=== PATIENT | female | born 1990 | race Caucasian/White ===

== ENCOUNTER 2024-06-19 01:45 | Emergency (ER) | payer MEDICAID ==
[~2024-06-19] VITALS: Ht 160 cm; Wt 93.0 kg
[2024-06-19 01:53] VITALS: O2SAT 98
[2024-06-19 02:22] VITALS: TEMP 36.55848
[2024-06-19] MEDS: METOCLOPRAMIDE HCL 10MG/2ML VIAL IV STA (02:28)
[2024-06-19] MEDS: MAGNESIUM/ALUMINUM HYDROXIDE/SIMETHICONE 30ML UDC PO STA (02:28)
[2024-06-19 02:41] LABS: BASOPHILS % 0.4 % (0.0-2.0); EOSINOPHILS % 1.3 % (0.0-5.0); HEMATOCRIT. 32.8 % (36.0-48.0); HEMOGLOBIN. 10.8 g/dL (12.0-16.0); MEAN CORPUSCULAR HEMOGLOBIN 31.1 pg (28.0-32.0); MEAN CORPUSCULAR HGB CONC 32.9 g/dL (31.0-37.0); MEAN CORPUSCULAR VOLUME 94.7 fL (81.0-99.0); MEAN PLATELET VOLUME 8.7 fl (7.4-10.4); MONOCYTES % 5.5 % (2.0-8.0); NEUTROPHILS % 59.8 % (40.0-76.0); PLATELET 288 x1000/uL (130-400); RED BLOOD CELL COUNT 3.46 mill/uL (4.2-5.4); RED CELL DISTRIBUTION WIDTH 13.6 % (11.6-14.6); WHITE BLOOD COUNT 11.8 x1000/uL (4.5-11.0)
[2024-06-19 02:47] LABS: CHLORIDE 109 mEq/L (98-107)
[2024-06-19 02:48] LABS: CARBON DIOXIDE 26 mEq/L (21-32); SODIUM 140 mEq/L (136-145)
[2024-06-19 02:49] LABS: CALCIUM 8.9 mg/dL (8.7-10.4)
[2024-06-19 02:53] LABS: CREATININE 0.7 mg/dL (0.6-1.0); GLUCOSE 94 mg/dL (70-105)
[2024-06-19 02:54] LABS: UREA NITROGEN BLOOD 16 mg/dL (9-23)
[2024-06-19 02:55] LABS: ALANINE AMINOTRANSFERASE 42 IU/L (10-49); ALBUMIN 3.6 g/dL (3.2-4.8); ASPARTATE AMINOTRANSFERASE 100 IU/L (<34)
[2024-06-19 02:56] LABS: BILIRUBIN DIRECT 0.2 mg/dL (<=3.0); BILIRUBIN TOTAL 0.6 mg/dL (0.1-1.0); PROTEIN TOTAL 6.2 g/dL (6.0-8.3)
[2024-06-19 03:07] LABS: INR 0.9; PROTHROMBIN TIME 10.4 sec (9.6-11.0)
[2024-06-19] MEDS: ACETAMINOPHEN 1000MG/100ML 100 ML IV ONE (03:21)
[2024-06-19] MEDS: SODIUM CHLORIDE 0.9% 1,000 ML IV ONE (03:21)
[2024-06-19] MEDS ORDERED: ONDA4TAB50 MT (03:34)
[2024-06-19] MEDS ORDERED: NAPR-420 MT (03:34)
[2024-06-19 03:59] VITALS: BP 112/60; PULSE 69; RESP 16; O2SAT 99
== END 2024-06-19 04:00 | disposition home or self-care (01) ==
LOC: ER 01:45
DX: K80.20 Calculus of gallbladder without cholecystitis without obstruction (principal); Z98.890 Other specified postprocedural states; Z87.442 Personal history of urinary calculi
CPT/HCPCS: 99285; 96365; 76705; 96375; 80076; 80048; 83690; 85025; 85610; 36415; J2765; J7030; J0131

== ENCOUNTER 2025-03-30 18:14 | Emergency (ER) | payer MEDICAID ==
[~2025-03-30] VITALS: Ht 160 cm; Wt 100.0 kg
[~2025-03-30 18:14] MED LIST: NAPR-420 MT; ONDA4TAB50 MT
[2025-03-30 18:23] VITALS: TEMP 37.1; O2SAT 98
[2025-03-30 19:06] LABS: BASOPHILS % 0.6 % (0.0-2.0); EOSINOPHILS % 1.2 % (0.0-5.0); HEMATOCRIT. 39.4 % (36.0-48.0); HEMOGLOBIN. 12.9 g/dL (12.0-16.0); LYMPHOCYTES % 30.6 % (20.0-50.0); MEAN PLATELET VOLUME 10.4 fl (7.4-10.4); MONOCYTES % 4.1 % (2.0-8.0); NEUTROPHILS % 63.5 % (40.0-76.0); PLATELET 202 x1000/uL (130-400); RED BLOOD CELL COUNT 4.62 mill/uL (4.2-5.4); RED CELL DISTRIBUTION WIDTH 17.1 % (11.6-14.6)
[2025-03-30 19:16] LABS: CREATININE 0.8 mg/dL (0.6-1.0); UREA NITROGEN BLOOD 6 mg/dL (9-23)
[2025-03-30 19:29] LABS: HCG SCREEN POSITIVE
[2025-03-30 19:39] LABS: CLARITY URINE CLOUDY (CLEAR); COLOR URINE YELLOW (YELLOW); GLUCOSE URINE NEGATIVE (NEGATIVE); KETONES URINE 2+ (NEGATIVE); LEUKOCYTE ESTERASE URINE 2+ (NEGATIVE); NITRITE URINE NEGATIVE (NEGATIVE); OCCULT BLOOD URINE 3+ (NEGATIVE); PH URINE 6.0 (4.5-8.0); PROTEIN URINE TRACE (NEGATIVE); SPECIFIC GRAVITY URINE 1.020 (1.005-1.030); UROBILINOGEN URINE 1.0 E.U./dL (0.2-1.0)
[2025-03-30 19:49] LABS: INR 1.0
[2025-03-30] MEDS: ONDANSETRON 4MG ODT PO ONE (19:54)
[2025-03-30 20:38] LABS: BACTERIA URINE 1+; SQUAMOUS EPITHELIAL CELL URINE 1+ /lpf (RARE/1+)
[2025-03-30] MEDS ORDERED: DOXY1TAB3 MT (21:03)
[2025-03-30] MEDS ORDERED: FAMO-135 MT (21:04)
[2025-03-30] MEDS ORDERED: MAG355OR21 MT (21:04)
[2025-03-30] MEDS ORDERED: LACT1CAP78 MT (21:16)
[2025-03-30] MEDS ORDERED: CEFP200T13 MT (21:16)
[2025-03-30 21:28] VITALS: BP 114/59; PULSE 77; RESP 12; O2SAT 97
== END 2025-03-30 21:33 | disposition home or self-care (01) ==
LOC: ER 18:14
DX: O99.111 Other diseases of the blood and blood-forming organs and certain disorders involving the immune mechanism complicating pregnancy, first trimester (principal); O23.41 Unspecified infection of urinary tract in pregnancy, first trimester; O26.891 Other specified pregnancy related conditions, first trimester; N89.8 Other specified noninflammatory disorders of vagina; Z79.899 Other long term (current) drug therapy; Z3A.01 Less than 8 weeks gestation of pregnancy
CPT/HCPCS: 99284; 76801; 80048; 81003; 81025; 84703; 84702; 85025; 85610; 86850; 86900; 86901; 36415; 76817; Q0162